=== PATIENT | female | born 1965 | race Caucasian/White ===

== ENCOUNTER 2016-05-31 10:46 | Emergency (ER) | payer MEDICARE ==
[~2016-05-31] VITALS: Ht 165.1 cm; Wt 63.5 kg
[~2016-05-31 10:46] MED LIST: ALPR0.255 PO; BUTA1CAP46 PO; Nortriptyline Hcl PO; ONDA8TAB6 SL; PANT40TA4 PO; SUMA100T PO; TOPI100T11 PO
--- NOTE | 2016-05-31 11:00 | NUR ---
AAOX3 CAME TO ER C/O NAUSEA AND VOMITING. SKIN IS WARM AND NON DIAPHORETIC. DR CAMPO AT FOR EVAL.
[2016-05-31] MEDS ORDERED: ONDANSETRON HCL/PF 4 MG/2 ML VIAL ONE (11:49)
[2016-05-31] MEDS ORDERED: IV NS 0.9% 1,000 ML ONE (11:49)
[2016-05-31] MEDS ORDERED: IV SET PRIMARY 1 EA INFUS.SET MC ONE (11:49)
[2016-05-31 11:59] LABS: EOSINOPHILS % (AUTO) 0.6 % (0.0-6.0); HEMATOCRIT 37 % (33-45); HEMOGLOBIN 12.2 g/dL (11.5-14.8); LYMPHOCYTES # (AUTO) 1.6 /CMM (0.8-4.8); LYMPHOCYTES % (AUTO) 52.4 % (20.0-44.0); MEAN CORPUSCULAR HEMOGLOBIN 27 PG (26.0-33.0); MEAN CORPUSCULAR HGB CONC 33 g/dl (31.0-36.0); MEAN CORPUSCULAR VOLUME 83 fL (82-100); MONOCYTES # (AUTO) 0.3 /CMM (0.1-1.30); MONOCYTES % (AUTO) 9.4 % (2.0-12.0); NEUTROPHILS # (AUTO) 1.1 /CMM (1.8-8.9); NEUTROPHILS % (AUTO) 37.6 % (43.0-81.0); PLATELET COUNT (AUTO) 278 /CMM (150-450); RDW COEFFICIENT OF VARIATION 20.3 (11.5-15.0); RED BLOOD CELL COUNT(AUTO) 4.52 MIL/uL (4.0-5.2)
[2016-05-31] MEDS ORDERED: ONDANSETRON HCL/PF 4 MG/2 ML VIAL IVP ONE (12:00)
[2016-05-31] MEDS ORDERED: IV NS 0.9% 1,000 ML BAG IV ONE (12:00)
[2016-05-31 12:23] LABS: INR 1.11 (0.87-1.13)
--- NOTE | 2016-05-31 12:25 | NUR ---
PATIENT CAN'T PROVIDE URINE, ER MADE AWARE.
[2016-05-31 12:38] LABS: ALBUMIN 4.1 g/dL (3.4-5.0); BILIRUBIN,DIRECT 0.2 mg/dL (0.0-0.2); BILIRUBIN,TOTAL 0.5 mg/dL (0.2-1.0); CALCIUM, SERUM 7.9 mg/dL (8.5-10.1); CREATININE 0.7 mg/dL (0.6-1.3); TOTAL PROTEIN, SERUM 7.1 g/dL (6.4-8.2)
[2016-05-31 12:39] LABS: POTASSIUM 2.8 mmol/L (3.5-5.1)
[2016-05-31] MEDS ORDERED: POTASSIUM CHLORIDE 20 MEQ TAB.PRT.SR PO ONE ×2 (13:00→13:11)
--- NOTE | 2016-05-31 13:22 | NUR ---
FOOD PROVIDED AT
--- NOTE | 2016-05-31 14:08 | NUR ---
IV removed. Catheter intact and site benign. Pressure and 4x4 applied to site. No bleeding noted.Patient discharged to home in stable condition. Written and verbal after care instructions given. Patient verbalizes understanding of instruction. AAOX3.
[2016-05-31 14:10] VITALS: BP 115/65
== END 2016-05-31 14:12 | disposition home or self-care (01) ==
LOC: ER 10:48
DX: E87.6 Hypokalemia (principal); R11.2 Nausea with vomiting, unspecified; E78.00 Pure hypercholesterolemia, unspecified; Z88.6 Allergy status to analgesic agent; R79.1 Abnormal coagulation profile
CPT/HCPCS: 36415; 80048; 80076; 83690; 85025; 85730; 96361; 96374; 99284; A4606; J2405; J7030; Z7610

== ENCOUNTER 2016-06-10 22:51 | Emergency (ER) | payer MEDICARE ==
[~2016-06-10] VITALS: Ht 162.6 cm; Wt 49.9 kg
[2016-06-10] MEDS ORDERED: IBUPROFEN 400 MG TABLET PO ONE (23:00)
--- NOTE | 2016-06-10 23:00 | NUR ---
To bed 1 a 51 yo female bibra with c/o of sharp pain on the left lateral side of chest at 10/10 that started "all day." Denies vomiting, nor diarrhea. Patient is aaox3, no s/s of acute distress. Breathing even and unlabored. Skin warm and dry. VSS. Placed on surveillance system monitor. Awaiting for er md juarez.
[2016-06-10] MEDS ORDERED: IBUPROFEN 400 MG TABLET ONE (23:05)
--- NOTE | 2016-06-10 23:27 | NUR ---
started saline lock on right ac g18, blood drawn and sent to lab.
--- NOTE | 2016-06-10 23:28 | NUR ---
xr tech at bedside.
[2016-06-10 23:34] LABS: HEMATOCRIT 32 % (33-45); HEMOGLOBIN 10.2 g/dL (11.5-14.8); MEAN CORPUSCULAR HEMOGLOBIN 27 PG (26.0-33.0); MEAN CORPUSCULAR HGB CONC 32 g/dl (31.0-36.0); MEAN CORPUSCULAR VOLUME 84 fL (82-100); PLATELET COUNT (AUTO) 371 /CMM (150-450); RED BLOOD CELL COUNT(AUTO) 3.78 MIL/uL (4.0-5.2); WHITE BLOOD COUNT (AUTO) 4.2 K/uL (4.3-11.0)
[2016-06-10 23:52] LABS: CALCIUM, SERUM 8.6 mg/dL (8.5-10.1); CREATININE 0.7 mg/dL (0.6-1.3); POTASSIUM 3.5 mmol/L (3.5-5.1)
[2016-06-10 23:58] LABS: INR 0.94 (0.87-1.13)
[2016-06-10] MEDS ORDERED: ASPIRIN 325 MG TABLET ONE (23:58)
[2016-06-10] MEDS ORDERED: ONDANSETRON HCL/PF 4 MG/2 ML VIAL ONE (23:58)
[2016-06-11] LABS: TROPONIN I 0.019 ng/mL (0.00-0.056)
[2016-06-11] MEDS ORDERED: ASPIRIN 325 MG TABLET PO ONE
[2016-06-11] MEDS ORDERED: ONDANSETRON HCL/PF 4 MG/2 ML VIAL IV ONE
[2016-06-11] MEDS ORDERED: LORAZEPAM INJ 2 MG/ML VIAL IV ONE (00:30)
[2016-06-11] MEDS ORDERED: LORAZEPAM INJ 2 MG/ML VIAL ONE (00:44)
[2016-06-11 01:35] LABS: CANNABINOID, URINE NEGATIVE (NEGATIVE); PHENCYCLIDINE SCREEN,URINE NEGATIVE (NEGATIVE)
--- NOTE | 2016-06-11 02:28 | NUR ---
blood draw for 2nd trop done.
--- NOTE | 2016-06-11 03:49 | NUR ---
IV removed. Catheter intact and site benign. Pressure and 4x4 applied to site. No bleeding noted. Patient discharged to home in stable condition. Written and verbal after care instructions given. Patient verbalizes understanding of instruction. Patient is ambulatory with steady gait.
[2016-06-11 03:50] VITALS: BP 110/69
[2016-06-11 09:27] LABS: EOSINOPHILS % (MANUAL) 2 % (0-4); LYMPHOCYTES % (MANUAL) 59 % (16-48); MONOCYTES % (MANUAL) 12 % (0-11.0); NEUTROPHILS % (MANUAL) 27 (42-76)
[2016-06-11 09:28] LABS: ANISOCYTOSIS 1+; HYPOCHROMASIA 1+; PLATELET ESTIMATE ADEQUATE
== END 2016-06-11 03:50 | disposition home or self-care (01) ==
LOC: ER 22:55
DX: R07.9 Chest pain, unspecified (principal); F41.9 Anxiety disorder, unspecified; E78.00 Pure hypercholesterolemia, unspecified; Z88.6 Allergy status to analgesic agent
CPT/HCPCS: 36415 ×2; 71010; 80048; 80305; 84484 ×2; 85025; 85730; 93005; 96374; 96375; 99285; A4606; J2060; J2405; Z7610

== ENCOUNTER 2016-09-12 10:48 | Emergency (ER) | payer MEDICARE ==
[~2016-09-12] VITALS: Ht 162.6 cm; Wt 54.4 kg
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
[2016-09-12] MEDS ORDERED: OLANZAPINE 10 MG VIAL IM ONE ×2 (11:01→11:30)
[2016-09-12] MEDS ORDERED: WATER FOR INJECTION,STERILE 10 ML ONE (11:01)
[2016-09-12 11:20] LABS: BASOPHILS # (AUTO) 0.1 /CMM (0.0-0.2); BASOPHILS % (AUTO) 1.7 % (0.0-2.0); EOSINOPHILS % (AUTO) 1.1 % (0.0-6.0); HEMATOCRIT 33 % (33-45); HEMOGLOBIN 10.7 g/dL (11.5-14.8); LYMPHOCYTES # (AUTO) 1.2 /CMM (0.8-4.8); LYMPHOCYTES % (AUTO) 40.9 % (20.0-44.0); MEAN CORPUSCULAR HEMOGLOBIN 28 PG (26.0-33.0); MEAN CORPUSCULAR HGB CONC 33 g/dl (31.0-36.0); MEAN CORPUSCULAR VOLUME 85 fL (82-100); MONOCYTES # (AUTO) 0.3 /CMM (0.1-1.30); MONOCYTES % (AUTO) 10.2 % (2.0-12.0); NEUTROPHILS # (AUTO) 1.4 /CMM (1.8-8.9); NEUTROPHILS % (AUTO) 46.1 % (43.0-81.0); PLATELET COUNT (AUTO) 243 /CMM (150-450); RDW COEFFICIENT OF VARIATION 18.2 (11.5-15.0); RED BLOOD CELL COUNT(AUTO) 3.83 MIL/uL (4.0-5.2)
--- NOTE | 2016-09-12 11:27 | NUR ---
URINE SAMPLE OBTAINED BY IN AND OUT CATH PER
[2016-09-12 11:45] LABS: APPEARANCE,URINE Clear (CLEAR); BILIRUBIN,URINE Negative (NEGATIVE); BLOOD, URINE Negative Ery/uL (NEGATIVE); COLOR,URINE Yellow (YELLOW); KETONES,URINE Negative (NEGATIVE); LEUKOCYTE ESTERASE ,URINE Negative (NEGATIVE); NITRITE, URINE Negative (NEGATIVE); PH,URINE 5.5 (5.0-8.0); PROTEIN,URINE Negative (NEGATIVE); UGLUCOSE Negative (NEGATIVE); UROBILINOGEN,URINE 0.2 EU/dL (0.2)
[2016-09-12 12:03] LABS: ACETAMINOPHEN 14 ug/ml (10-30); ALANINE AMINOTRANSFERASE 16 U/L (12-78); ALBUMIN 3.5 g/dL (3.4-5.0); ALCOHOL, BLOOD < 3 mg/dL (0-0); ALKALINE PHOSPHATASE 59 U/L (46-116); ASPARTATE AMINOTRANSFERASE 15 U/L (15-37); BILIRUBIN,DIRECT 0.1 mg/dL (0.0-0.2); BILIRUBIN,TOTAL 0.3 mg/dL (0.2-1.0); CALCIUM, SERUM 8.3 mg/dL (8.5-10.1); CARBON DIOXIDE 26 mmol/L (21-32); CHLORIDE 107 mmol/L (98-107); CREATININE 0.6 mg/dL (0.6-1.3); GLUCOSE 109 mg/dL (74-106); POTASSIUM 3.2 mmol/L (3.5-5.1); SODIUM SERUM 142 mmol/L (136-145); TOTAL PROTEIN, SERUM 6.7 g/dL (6.4-8.2); UREA NITROGEN, BLOOD 4 mg/dL (7-18)
[2016-09-12 12:06] LABS: SALICYLATE 0.2 mg/dL (2.8-20.0)
--- NOTE | 2016-09-12 13:09 | NUR ---
PT AMBULATED TO RESTROOM WITH SLOW BUT STEADY GAIT Addendum: 09/12/16 at 1317 by HFOX CORRECTION: SLOW UNSTEADY GAIT
--- NOTE | 2016-09-12 14:12 | NUR ---
CALLED [facility] FOR EVALUATION WILL ARRIVE IN 1 HOUR
--- NOTE | 2016-09-12 14:58 | NUR ---
pinky at bedside
--- NOTE | 2016-09-12 15:40 | NUR ---
all needs attended to. VSS. NAD noted.
--- NOTE | 2016-09-12 16:35 | NUR ---
CALLED [facility] FOR S TRANSPORT. ETA IS 1830 TO 1900. THEY WILL TRY FOR SOONER ETA
--- NOTE | 2016-09-12 16:48 | NUR ---
CALLED [facility] FOR BLS TO [facility]. NO ETA AVAILABLE
[2016-09-12] MEDS ORDERED: LORAZEPAM 1 MG TABLET ONE (16:50)
--- NOTE | 2016-09-12 16:52 | NUR ---
CALLED [facility] FOR BLS TRANSPORT. NO ETA AVAILABLE
--- NOTE | 2016-09-12 16:55 | NUR ---
SPOKE WITH MONICA AT [facility]. ETA 30-45 MINUTES
[2016-09-12] MEDS ORDERED: LORAZEPAM 1 MG TABLET PO ONE (17:00)
[2016-09-12 17:43] VITALS: BP 148/85
--- NOTE | 2016-09-12 17:43 | NUR ---
PT TRANSPORTED TO [facility] IN STABLE CONDITION. PER EVER, SHE GAVE RN TO RN REPORT; NO NEED FOR ADDITIONAL REPORT. NAD NOTED. VSS. ALL PAPERWORK WITH PT.
== END 2016-09-12 17:45 ==
LOC: ER 10:54
DX: F29 Unspecified psychosis not due to a substance or known physiological condition (principal); Z88.6 Allergy status to analgesic agent
CPT/HCPCS: 36415; 80048-TC; 80076-TC; 80305; 81000-TC; 85025-TC; A4606; G0480; J3490; Z7610

== ENCOUNTER 2016-11-21 09:56 | Emergency (ER) | payer MEDICARE ==
[~2016-11-21] VITALS: Ht 162.6 cm; Wt 45.4 kg
[2016-11-21] MEDS ORDERED: IBUPROFEN 600 MG TABLET PO ONE ×2 (10:30→10:39)
[2016-11-21] MEDS ORDERED: ACETAMINOPHEN ES 500 MG TABLET PO ONE (10:30)
[2016-11-21] MEDS ORDERED: ACETAMINOPHEN ES 500 MG TABLET ONE (10:39)
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
--- NOTE | 2016-11-21 11:25 | NUR ---
PT ABULATORY TO THE BATHROOM W/ ASSISTANCE.
--- NOTE | 2016-11-21 12:16 | NUR ---
PT D/C TO HOME VIA [facility]. PROVIDED W/ ACI AND PRESCRIPTION. STABLE CONDITION.
[2016-11-21 12:17] VITALS: BP 118/77
== END 2016-11-21 12:18 | disposition home or self-care (01) ==
LOC: ER 09:57
DX: S29.012A Strain of muscle and tendon of back wall of thorax, initial encounter (principal); S21.202A Unspecified open wound of left back wall of thorax without penetration into thoracic cavity, initial encounter; Z88.5 Allergy status to narcotic agent; W18.2XXA Fall in (into) shower or empty bathtub, initial encounter; Y93.89 Activity, other specified; Y92.89 Other specified places as the place of occurrence of the external cause; Y99.8 Other external cause status
CPT/HCPCS: A4606; Z7610